=== PATIENT | female | born 1980 | race Two or more races ===

== ENCOUNTER → 2020-06-23 | Outpatient (CLI) | payer OTHER ==
[~2020-06-23] MED LIST: ALDOMET250 MG PO; LEVEMIR100 U/ML SQ; NOVOLOG100 U/ML SQ
== END | disposition home or self-care (01) ==
LOC: PRENATAL 10:00
PROVIDERS: ATTEND Obstetrics & Gynecology Maternal & Fetal Medicine
DX: O24.311 Unspecified pre-existing diabetes mellitus in pregnancy, first trimester (principal); O36.80X1 Pregnancy with inconclusive fetal viability, fetus 1; O10.011 Pre-existing essential hypertension complicating pregnancy, first trimester; O09.521 Supervision of elderly multigravida, first trimester; Z36.89 Encounter for other specified antenatal screening; Z3A.14 14 weeks gestation of pregnancy

== ENCOUNTER → 2020-07-26 | Outpatient (CLI) | payer OTHER | END | disposition home or self-care (01) | LOC: PRENATAL 10:52 | PROVIDERS: ATTEND Obstetrics & Gynecology Maternal & Fetal Medicine | DX: O35.3XX1 Maternal care for (suspected) damage to fetus from viral disease in mother, fetus 1 (principal); O36.80X1 Pregnancy with inconclusive fetal viability, fetus 1; O35.0XX1 Maternal care for (suspected) central nervous system malformation in fetus, fetus 1; O09.522 Supervision of elderly multigravida, second trimester; O98.512 Other viral diseases complicating pregnancy, second trimester; O10.012 Pre-existing essential hypertension complicating pregnancy, second trimester; Z36.89 Encounter for other specified antenatal screening; Z3A.19 19 weeks gestation of pregnancy ==

== ENCOUNTER → 2020-08-23 | Outpatient (CLI) | payer OTHER | END | disposition home or self-care (01) | LOC: PRENATAL 08:47 | PROVIDERS: ATTEND Obstetrics & Gynecology Maternal & Fetal Medicine | DX: O26.842 Uterine size-date discrepancy, second trimester (principal); O24.312 Unspecified pre-existing diabetes mellitus in pregnancy, second trimester; O10.012 Pre-existing essential hypertension complicating pregnancy, second trimester; O09.522 Supervision of elderly multigravida, second trimester; O34.211 Maternal care for low transverse scar from previous cesarean delivery; Z36.89 Encounter for other specified antenatal screening; Z3A.23 23 weeks gestation of pregnancy ==

== ENCOUNTER 2020-09-09 07:35 | Outpatient (CLI) | payer OTHER | END 2020-09-09 13:26 | disposition home or self-care (01) | LOC: OBS/DEL 07:35 | PROVIDERS: ATTEND Specialist | DX: O26.842 Uterine size-date discrepancy, second trimester (principal); O26.852 Spotting complicating pregnancy, second trimester; O34.211 Maternal care for low transverse scar from previous cesarean delivery ==

== ENCOUNTER → 2020-09-22 | Outpatient (CLI) | payer OTHER | END | disposition home or self-care (01) | LOC: PRENATAL 11:00 | PROVIDERS: ATTEND Obstetrics & Gynecology Maternal & Fetal Medicine | DX: O26.843 Uterine size-date discrepancy, third trimester (principal); O24.313 Unspecified pre-existing diabetes mellitus in pregnancy, third trimester; O10.013 Pre-existing essential hypertension complicating pregnancy, third trimester; O09.523 Supervision of elderly multigravida, third trimester; Z36.89 Encounter for other specified antenatal screening; Z3A.27 27 weeks gestation of pregnancy ==

== ENCOUNTER 2020-10-10 08:45 | Outpatient (CLI) | payer OTHER | END 2020-10-10 14:53 | disposition home or self-care (01) | LOC: OBS/DEL 08:45 | PROVIDERS: ATTEND Specialist | DX: O26.843 Uterine size-date discrepancy, third trimester (principal); O26.853 Spotting complicating pregnancy, third trimester; O24.913 Unspecified diabetes mellitus in pregnancy, third trimester; Z3A.30 30 weeks gestation of pregnancy ==

== ENCOUNTER 2020-10-27 08:11 | Outpatient (CLI) | payer OTHER | END 2020-10-27 09:18 | disposition home or self-care (01) | LOC: NST 08:11 | PROVIDERS: ATTEND Specialist | DX: Z34.83 Encounter for supervision of other normal pregnancy, third trimester (principal) ==

== ENCOUNTER 2020-10-29 15:47 | Inpatient (IN) | payer OTHER ==
[~2020-10-29] VITALS: Ht 152.4 cm; Wt 82.1 kg
[2020-10-29] MEDS ORDERED: CHILDREN'S ASPI81 MG PO (18:38)
[2020-10-29] MEDS ORDERED: PRENATAL TABLE1 EAC1 PO (18:39)
[2020-10-29] MEDS ORDERED: LABETALOL HCL200 MG PO (18:40)
[2020-10-29] MEDS ORDERED: LANTUS SOL100 UNIT/1 SUBCUTANEO (18:42)
[2020-10-29] MEDS ORDERED: HUMALOG100 UNIT/2 SUBCUTANEO (18:44)
== END 2020-11-04 18:03 | disposition home or self-care (01) | DRG 786 ==
LOC: LDR 15:47 → O/R 15:47 → OB/GYN 11-01 13:18
PROVIDERS: ADMIT Specialist; ATTEND Specialist
PROC: 4A1HXFZ Monitoring of Products of Conception, Cardiac Rhythm, External Approach (ICD-10-PCS; 2020-10-29)
PROC: BY4FZZZ Ultrasonography of Third Trimester, Single Fetus (ICD-10-PCS; 2020-10-29)
PROC: 10D00Z1 Extraction of Products of Conception, Low, Open Approach (ICD-10-PCS; principal; 2020-11-02)
DX: O76 Abnormality in fetal heart rate and rhythm complicating labor and delivery (principal); O24.32 Unspecified pre-existing diabetes mellitus in childbirth; O10.02 Pre-existing essential hypertension complicating childbirth; O42.113 Preterm premature rupture of membranes, onset of labor more than 24 hours following rupture, third trimester; O34.211 Maternal care for low transverse scar from previous cesarean delivery; E11.9 Type 2 diabetes mellitus without complications; Z3A.33 33 weeks gestation of pregnancy; Z37.0 Single live birth

== ENCOUNTER 2023-09-13 07:53 | Outpatient (CLI) | payer OTHER ==
[~2023-09-13 07:53] MED LIST changes: +CHILDREN'S ASPI81 MG PO; +HUMALOG100 UNIT/2 SUBCUTANEO; +LABETALOL HCL200 MG PO; +LANTUS SOL100 UNIT/1 SUBCUTANEO; +PRENATAL TABLE1 EAC1 PO
== END 2023-09-13 07:54 | disposition home or self-care (01) ==
LOC: NUCLEAR 07:53
PROVIDERS: ATTEND Internal Medicine
DX: I11.9 Hypertensive heart disease without heart failure (principal); I25.118 Atherosclerotic heart disease of native coronary artery with other forms of angina pectoris; E10.9 Type 1 diabetes mellitus without complications

== ENCOUNTER 2025-07-08 08:45 | Outpatient (CLI) | payer OTHER | END 2025-07-08 08:46 | disposition home or self-care (01) | LOC: SONOGRAMA 08:45 | PROVIDERS: ATTEND Pathology Anatomic Pathology & Clinical Pathology | DX: D34 Benign neoplasm of thyroid gland (principal); E06.3 Autoimmune thyroiditis; E03.9 Hypothyroidism, unspecified ==